=== PATIENT | female | born 1995 | race Caucasian/White ===

== ENCOUNTER 2021-06-03 17:35 | Emergency (ER) | payer OTHER, MEDICAID, SELFPAY ==
[2021-06-03 17:40] VITALS: BP 140/82; PULSE 115; RESP 18; TEMP 36.8; O2SAT 98; BMI 31.8
--- NOTE | 2021-06-03 19:59 | ED.FEMALEGU ---
HPI - Female Genitourinary General Chief complaint: Urogenital-Female Stated complaint: urinary retention new meds Time Seen by Provider: 06/03/21 19:35 Source: patient Mode of arrival: Ambulatory Limitations: no limitations History of Present Illness HPI Narrative: The patient is transgender. He underwent a hysterectomy January 29, 2021. The patient started Trospium about 6:30 this morning. The patient had to under ventral episodes of urine output afterwards. Since about 1:30PM. there has been no urine output. The patient has no prior history of urinary retention. He has no fever, no chills. He has no nausea, vomiting or diarrhea. Bowel function has been normal. Related Data Home Medications Medication Instructions Recorded Confirmed testosterone enanthate 100 mg/0.5 50 mg SUBCUT QWEEK 02/15/19 02/15/19 mL subcutaneous auto-injector Allergies Allergy/AdvReac Type Severity Reaction Status Date / Time Sulfa (Sulfonamide AdvReac Mild diarrhea Verified 06/03/21 17:44 Antibiotics) Review of Systems Review of Systems Narrative: See HPI Patient History alcohol intake frequency: 0-2 drinks per day Substance Use Type: marijuana Exam Initial Vital Signs Initial Vital Signs: Vital Signs Temperature 98.2 F 06/03/21 17:40 Pulse Rate 115 06/03/21 17:40 Respiratory Rate 18 06/03/21 17:40 Blood Pressure 140/82 06/03/21 17:40 Pulse Oximetry 98 06/03/21 17:40 Const General: cooperative, healthy appearing, comfortable, well developed and well groomed GI Other: Suprapubic distention with mild tenderness. Normal bowel sounds. No masses. No guarding rebound. Bladder scan reveals about 1000 mL of urine retained. Back/Spine/Pelvis Back: No CVA tenderness Skin General: no rashes or lesions noted Neuro General: patient alert, patient awake and patient oriented x3 Course Course Course Narrative: A Zambrano was placed by the patient's nurse, with release of 1000 mL of clear urine. The patient is feeling much better prior to discharge. Keeping the Zambrano in place for a couple days was discussed, patient prefers immediate removal of the Zambrano prior to discharge. Patient is advised to discontinue the new medication, and contact his doctor. Return here as needed. Vital Signs Vital signs: Vital Signs - 8 hr 06/03/21 17:40 Temperature 98.2 F Pulse Rate 115 Respiratory Rate 18 Blood Pressure 140/82 Pulse Oximetry 98 MDM - Female Genitourinary Lab Data Labs: Urine Dip Bedside Urine Glucose Negative Bedside Urine Ketone - Negative Bedside Urine Occult Blood - Negative Bedside Urine pH 7.0 Bedside Urine Protein - Negative Bedside Urine Urobilinogen - Negative Bedside Urine Nitrite - Negative Bedside Urine Leukocytes - Negative Esterase Discharge Plan Departure Patient Disposition: Home Clinical Impression: Acute urinary retention Activity Restrictions/Additional Instructions: The urinary retention is likely associated with the use of Trospium. Talk to your doctor before using this medication again. Be sure you are drinking plenty of fluids. Use suprapubic pressure as I demonstrated if necessary to help induce urine output. If you have recurrence of urinary retention return here if necessary. Prescriptions: No Action testosterone enanthate 100 mg/0.5 mL auto-injector 50 mg SUBCUT QWEEK 0RF Referrals: Ciera Squires DO [Primary Care Provider] -
[2021-06-03 21:46] VITALS: BP 130/78; PULSE 64; RESP 18; TEMP 36.4; O2SAT 100
== END 2021-06-03 21:45 | disposition home or self-care (01) ==
PROVIDERS: Emergency Provider Emergency Medicine; PCP Family Medicine
DX: R33.9 Retention of urine, unspecified (principal)
CPT/HCPCS: 51702; 51798; 81003; 99283; 99284